=== PATIENT | male | born 1975 | race Caucasian/White ===

== ENCOUNTER 2022-06-19 10:42 | Emergency (ER) | payer OTHER ==
[~2022-06-19] VITALS: Ht 182.9 cm; Wt 45.4 kg
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
--- NOTE | 2022-06-19 11:22 | NUR ---
X RAY AT BEDSIDE
[2022-06-19 11:35] VITALS: BP 115/70
--- NOTE | 2022-06-19 11:35 | NUR ---
Patient discharged to [employer] custody - stable condition. Written and verbal after care instructions given. Patient verbalizes understanding of instruction.
== END 2022-06-19 11:35 | disposition home or self-care (01) ==
LOC: ER 10:50
DX: S21.102A Unspecified open wound of left front wall of thorax without penetration into thoracic cavity, initial encounter (principal); V19.9XXA Pedal cyclist (driver) (passenger) injured in unspecified traffic accident, initial encounter; Y93.89 Activity, other specified; Y92.89 Other specified places as the place of occurrence of the external cause; Y99.8 Other external cause status
CPT/HCPCS: 71045-TC

== ENCOUNTER 2022-10-15 10:40 | Emergency (ER) | payer OTHER ==
[~2022-10-15] VITALS: Ht 182.9 cm; Wt 90.7 kg
[2022-10-15] MEDS ORDERED: KETOROLAC TROMETHAMINE INJ 30 MG/ML VIAL ONE (11:59)
[2022-10-15] MEDS ORDERED: KETOROLAC TROMETHAMINE INJ 30 MG/ML VIAL IM ONE (12:00)
[2022-10-15] MEDS ORDERED: hydrOXYzine PAMOATE 50 MG CAPSULE PO ONE (12:00)
[2022-10-15] MEDS ORDERED: ONDANSETRON 4 MG TAB.RAPDIS ONE (12:29)
[2022-10-15] MEDS ORDERED: hydrOXYzine PAMOATE 25 MG CAPSULE PO ONE (12:30)
[2022-10-15] MEDS ORDERED: ONDANSETRON 4 MG TAB.RAPDIS PO ONE (12:30)
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
[2022-10-15 12:49] VITALS: BP 113/56
== END 2022-10-15 12:50 ==
LOC: ER 10:40
DX: F11.23 Opioid dependence with withdrawal (principal)
CPT/HCPCS: 99283; 96372; Q0177; J1885; Q0162

== ENCOUNTER 2022-11-15 07:44 | Emergency (ER) | payer OTHER ==
[~2022-11-15] VITALS: Ht 182.9 cm; Wt 90.7 kg
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
--- NOTE | 2022-11-15 08:20 | NUR ---
SEEN BY DR. HOBBS PT REFUSED I&D
[2022-11-15] MEDS ORDERED: LIDOCAINE 1% INJ 50 ML MDV IJ ONE (08:30)
[2022-11-15] MEDS ORDERED: IBUP-1955 PO (08:40)
[2022-11-15] MEDS ORDERED: SULF1TAB48 PO (08:40)
[2022-11-15] MEDS ORDERED: CEPH500C2 PO (08:40)
[2022-11-15] MEDS ORDERED: IBUPROFEN 600 MG TABLET ONE (08:58)
[2022-11-15] MEDS ORDERED: IBUPROFEN 600 MG TABLET PO ONE (09:00)
--- NOTE | 2022-11-15 09:00 | NUR ---
Patient discharged to home in stable condition. Written and verbal after care instructions given. Patient verbalizes understanding of instruction.
[2022-11-15 09:04] VITALS: BP 114/62
== END 2022-11-15 09:07 | disposition home or self-care (01) ==
LOC: ER 08:06
DX: L02.413 Cutaneous abscess of right upper limb (principal); L03.113 Cellulitis of right upper limb; Z60.2 Problems related to living alone
CPT/HCPCS: A6403; A6407

== ENCOUNTER 2023-07-02 09:03 | Emergency (ER) | payer OTHER ==
[~2023-07-02] VITALS: Ht 182.9 cm; Wt 89.8 kg
[~2023-07-02 09:03] MED LIST: CEPH500C2 PO; IBUP-1955 PO; SULF1TAB48 PO
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
[2023-07-02] MEDS ORDERED: BUPR8TAB4 SL (09:31)
[2023-07-02] MEDS ORDERED: BUPRENORPHINE HCL 8 MG TAB.SUBL SL ONE (09:38)
[2023-07-02] MEDS: BUPRENORPHINE HCL 8 MG TAB.SUBL SL ONE (09:41)
--- NOTE | 2023-07-02 09:42 | NUR ---
given Bubienorphine SL
[2023-07-02 09:43] VITALS: BP 98/69; TEMP 97.9; O2SAT 95
--- NOTE | 2023-07-02 09:43 | NUR ---
Patient discharged to home in stable condition. Written and verbal after care instructions given. Patient verbalizes understanding of instruction.
== END 2023-07-02 09:45 | disposition home or self-care (01) ==
LOC: ER 09:06
DX: F11.13 Opioid abuse with withdrawal (principal); F17.200 Nicotine dependence, unspecified, uncomplicated; Z60.2 Problems related to living alone

== ENCOUNTER 2023-07-02 12:52 | Emergency (ER) | payer OTHER ==
[~2023-07-02] VITALS: Ht 182.9 cm; Wt 90.7 kg
[~2023-07-02 12:52] MED LIST changes: +BUPR8TAB4 SL
[2023-07-02] MEDS ORDERED: ONDANSETRON HCL/PF 4 MG/2 ML VIAL ONE (13:21)
[2023-07-02] MEDS ORDERED: LORAZEPAM INJ 2 MG/ML VIAL ONE (13:22)
--- NOTE | 2023-07-02 13:24 | NUR ---
BIBRA 99 C/O drug withdrawl "feel like im dying" pt on RA and BP in normal
[2023-07-02] MEDS: LORAZEPAM INJ 2 MG/ML VIAL IV ONE (13:29)
[2023-07-02] MEDS: ONDANSETRON HCL/PF 4 MG/2 ML VIAL IV ONE (13:30)
--- NOTE | 2023-07-02 13:37 | NUR ---
D/C INSTRUCTIONS GIVEN TO PT AND TO [employer]. PT IN STABLE CONDITION AND OK TO BOOK PER ER DOC.
[2023-07-02 13:52] VITALS: BP 110/74; TEMP 98.5; O2SAT 98
== END 2023-07-02 13:52 ==
LOC: ER 13:02
DX: F11.23 Opioid dependence with withdrawal (principal); F17.200 Nicotine dependence, unspecified, uncomplicated; Z60.2 Problems related to living alone
CPT/HCPCS: 99284; 96374; 96375; J2060; J2405